=== PATIENT | female | born 1940 | race Caucasian/White ===

== ENCOUNTER 2019-04-01 08:45 | Inpatient (IN) | payer OTHER, BC ==
--- NOTE | 2019-04-01 08:55 | PDOC ---
History of Present Illness - General Chief Complaint: Back Pain Stated Complaint: BACK PAIN,FEVER,CHILLS Time Seen by Provider: 04/01/19 08:51 History Source: Patient Exam Limitations: No Limitations - History of Present Illness Initial Comments: 04/01/19 08:52 78 yo F with h/o chronic back pain, HTN, HLD arthritis, her with c/o fever and myalgia, chills. states she had fever 102 at home. took tylenol this am. pt states she recieved a steroid injection in her back on 03/20. and again on 03/26. here visiting from [place]. last night developed fever. has had a cough for few days, no n/v no abd pain. no urinary complaints. pain is at baseline in her back no worse. no new weakness or numbness in her legs. no rash. no recent travel. no n/v/d. meds: simvastatin, hctz, meloxicam, 04/01/19 09:35 04/01/19 10:48 Past History - Past Medical History Allergies/Adverse Reactions: Allergies Allergy/AdvReac Type Severity Reaction Status Date / Time No Known Allergies Allergy Verified 04/01/19 08:55 Home Medications: Ambulatory Orders Clonazepam 0 mg PO ASDIR 04/01/19 Simvastatin 0 mg PO DAILY 04/01/19 - Suicide/Smoking/Psychosocial Hx Smoking History: Never smoked Hx Alcohol Use: No Drug/Substance Use Hx: No Review of Systems - Review of Systems Constitutional: Yes: Chills, Fever HEENTM: No: Eye Pain Respiratory: Yes: Cough. No: Orthopnea, Shortness of Breath Cardiac (ROS): No: Chest Pain, Edema : No: Burning, Dysuria Musculoskeletal: Yes: Back Pain. No: Joint Pain Integumentary: No: Bruising, Change in Color All Other Systems: Reviewed and Negative *Physical Exam - Vital Signs Last Vital Signs Temp Pulse Resp BP Pulse Ox 99.5 F 80 20 109/56 L 96 04/01/19 08:46 04/01/19 08:46 04/01/19 08:46 04/01/19 08:46 04/01/19 08:46 - Physical Exam Comments: 04/01/19 08:54 awake alert NAD. dry mucous membranes. lungs crackles right lung lockett anteriorly. heart rrr no mrg abd soft nt nd ext wwp no edema. no calf tenderness. alert oriented x 3. skin warm and dry no rash. no midline spinal tenderness c/t/l spine. 5/5 lower ext strength. sensation intact throughout lower ext. 04/01/19 09:53 Heart Score/ECG Review #1 General ECG Interpretation: Sinus Rhythm, Normal Rate (78), Normal Intervals, No acute ischemic changes ED Treatment Course - LABORATORY CBC & Chemistry Diagram: 04/01/19 09:00 04/01/19 09:15 - RADIOLOGY Radiology Studies Ordered: Category Date Time Status CHEST PA & LAT [RAD] Stat Radiology 04/01/19 08:51 Ordered Medical Decision Making - Medical Decision Making 04/01/19 08:54 78 yo F h/o arthritis djd back pain recent injections 1 week ago here with cough fever. differential uti, pyelo, pna, sepsis, no midline tenderness over spine to suggest epidural abscess. plan labs ua cxr. if no source for fever consider mri r/o abscess. 04/01/19 08:56 pain management doctor [phone] Jamil. d/w dr jamil had medial nerves near facet joints, not near epidural space, but stil possible to seed in joint space. 04/01/19 13:[address] Joel Yu [phone] regaridng low sodium 128. MrI pending. called to request read. 04/01/19 14:12 pt with mild headache. possible symptomatic hyponatriema, given 1 L NS will repeat. due to persistant fevers, hypoxia 93 %. will admit. cxr negative. 04/01/19 14:31 mri findings wtih degenerative changes. no epidural fluid collection. however severe facet joint arthritis, difficult to differential inflammatory vs. infectious appearance per radiology . will cover vanco and zosy. pt with cough, sick contacts daughter and granddaughter with cough viral syndrome uri. however due to recent procedure, will cover for possible synovitis of spine. d/w Sachi for admission Franc dugan, will cosult infectious disease on admission. *DC/Admit/Observation/Transfer Diagnosis at time of Disposition: Hyponatremia, Cough - Discharge Dispostion Condition at time of disposition: Fair Decision to Admit order: Yes - Referrals - Patient Instructions - Post Discharge Activity
[2019-04-01] MEDS ORDERED: SODIUM CHLORIDE 0.9% 1000 ML INFUS.BAG IV ONE ×3 (08:57→18:15)
[2019-04-01 10:05] LABS: URINE MUCUS 1+
[2019-04-01 10:09] LABS: ALBUMIN 3.7 g/dl (3.4-5.0); BILIRUBIN,TOTAL 0.7 mg/dl (0.2-1); CALCIUM 8.4 mg/dl (8.5-10); CREATININE 0.9 mg/dl (0.55-1.3); POTASSIUM 3.4 mmol/L (3.5-5.1); TOT PROT 6.5 g/dl (6.4-8.2)
[2019-04-01 11:31] LABS: BASO % 0.2 % (0-2.0); EOS % 0.1 % (0-4.5); HEMATOCRIT 33.1 % (32.4-45.2); HEMOGLOBIN 11.1 GM/dL (10.7-15.3); LYMPH % 7.7 % (8-40); MCH 30.8 pg (25.7-33.7); MCHC 33.7 g/dl (32.0-36.0); MEAN CELL VOLUME 91.6 fl (80-96); MEAN PLT VOLUME 9.5 fl (7.5-11.1); MONO % 5.5 % (3.8-10.2); NEUT % 86.5 % (42.8-82.8); PLATELET COUNT 175 K/MM3 (134-434); RBC 3.61 M/mm3 (3.60-5.2); RDW 12.8 % (11.6-15.6); WHITE BLOOD COUNT 9.7 K/mm3 (4.0-10.0)
[2019-04-01 13:48] LABS: CALCIUM 8.1 mg/dl (8.5-10); CREATININE 0.9 mg/dl (0.55-1.3); POTASSIUM 3.3 mmol/L (3.5-5.1)
[2019-04-01] MEDS ORDERED: ACETAMINOPHEN INJECTION 100 ML IVPB ONE (13:50)
[2019-04-01] MEDS ORDERED: ACETAMINOPHEN 1000 MG/100 ML VIAL (NON FORMULARY) IVPB ONE (14:15)
[2019-04-01] MEDS ORDERED: PIPERACILLIN/TAZOB 3.375 GM 3.375 GM in DEXTROSE 5%-WATER - 50 ML IVPB ONE (14:30)
[2019-04-01] MEDS ORDERED: VANCOMYCIN 1 GM in D5W (PRE-DOCKED) 1,000 MG/250 ML IVPB ONE (14:31)
--- NOTE | 2019-04-01 14:46 | HP ---
CHIEF COMPLAINT: Fever, chills PCP: in [place] HISTORY OF PRESENT ILLNESS: 78 year-old female with a PMH significant for HTN, HLD, OA, and chronic back pain. Arrived in [place] on 03/27 from [place] to visit daughter. Presented to ED with complaint of home-recorded fever of 102.9, myalgias, and chills since last night. Patient reports having lumbar spine steroid injections for the first time on 03/20 and 03/26 with a pain management doctor in [place]. Patient has had a mild non-productive cough, visiting with young family members with assorted upper respiratory symptoms. No nausea, vomiting, diarrhea. No dysuria, frequency , urgency. 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 Smoking: quit 50 years ago Alcohol: rare Drugs: no Family History: non-contributory Allergies No Known Allergies Allergy (Verified 04/01/19 08:55) Home Medications Medication Instructions Recorded Benazepril/Hydrochlorothiazide 1 each PO BID 04/01/19 [Benazepril-Hctz 10-12.5 mg Tab] Clonazepam 1 mg PO HS 04/01/19 Lamotrigine 100 mg PO BID 04/01/19 Meloxicam [Mobic (Nf) -] 15 mg PO DAILY 04/01/19 Pramipexole Dihydrochloride 0.25 mg PO HS 04/01/19 Simvastatin 20 mg PO HS 04/01/19 traZODone HCL [Trazodone HCl] 50 mg PO HS 04/01/19 REVIEW OF SYSTEMS CONSTITUTIONAL: +fever, chills Absent: diaphoresis, generalized weakness, malaise, loss of appetite, weight change HEENT: Absent: rhinorrhea, nasal congestion, throat pain, throat swelling, difficulty swallowing, mouth swelling, ear pain, eye pain, visual changes CARDIOVASCULAR: Absent: chest pain, syncope, palpitations, irregular heart rate, lightheadedness , peripheral edema RESPIRATORY: Absent: cough, shortness of breath, dyspnea with exertion, orthopnea, wheezing, stridor, hemoptysis GASTROINTESTINAL: Absent: abdominal pain, abdominal distension, nausea, vomiting, diarrhea, constipation, melena, hematochezia GENITOURINARY: Absent: dysuria, frequency, urgency, hesitancy, hematuria, flank pain, genital pain MUSCULOSKELETAL: +back pain Absent: myalgia, arthralgia, joint swelling, neck pain SKIN: Absent: rash, itching, pallor HEMATOLOGIC/IMMUNOLOGIC: Absent: easy bleeding, easy bruising, lymphadenopathy, frequent infections ENDOCRINE: Absent: unexplained weight gain, unexplained weight loss, heat intolerance, cold intolerance NEUROLOGIC: Absent: headache, focal weakness or paresthesias, dizziness, unsteady gait, seizure, mental status changes, bladder or bowel incontinence PSYCHIATRIC: Absent: anxiety, depression, suicidal or homicidal ideation, hallucinations. PHYSICAL EXAMINATION Vital Signs - 24 hr 04/01/19 04/01/19 08:46 13:22 Temperature 99.5 F 102.9 F H Pulse Rate 80 Pulse Rate [ 78 Right Radial] Respiratory 20 Rate Blood Pressure 109/56 L Blood Pressure 95/68 [Left] O2 Sat by Pulse 96 95 Oximetry (%) GENERAL: Awake, alert, and fully oriented, in no acute distress. Well- appearing. Mildly anxious. LUNGS: Breath sounds equal, clear to auscultation bilaterally. No wheezes, and no crackles. No accessory muscle use. HEART: Regular rate and rhythm, normal S1 and S2 without murmur, rub or gallop. ABDOMEN: Soft, nontender, not distended, normoactive bowel sounds, no guarding, no rebound, no masses. MUSCULOSKELETAL: Normal range of motion at all joints. No bony deformities or tenderness. No CVA tenderness. UPPER EXTREMITIES: 2+ pulses, warm, well-perfused. No cyanosis. No clubbing. No peripheral edema. LOWER EXTREMITIES: 2+ pulses, warm, well-perfused. No calf tenderness. No peripheral edema. NEUROLOGICAL: Cranial nerves II-XII intact. Normal speech. Laboratory Results - last 24 hr 04/01/19 04/01/19 04/01/19 09:00 09:00 09:00 WBC 9.7 RBC 3.61 Hgb 11.1 Hct 33.1 MCV 91.6 MCH 30.8 MCHC 33.7 RDW 12.8 Plt Count 175 MPV 9.5 Absolute Neuts (auto) 8.4 H Neutrophils % 86.5 H Lymphocytes % 7.7 L Monocytes % 5.5 Eosinophils % 0.1 Basophils % 0.2 Nucleated RBC % 0 ESR Sodium Potassium Chloride Carbon Dioxide Anion Gap BUN Creatinine Est GFR (CKD-EPI)AfAm Est GFR (CKD-EPI)NonAf Random Glucose Lactic Acid 0.7 Calcium Total Bilirubin AST ALT Alkaline Phosphatase C-Reactive Protein Total Protein Albumin Urine Color Batool Urine Appearance Clear Urine pH 6.0 Urine Protein Trace Urine Glucose (UA) Negative Urine Ketones Trace Urine Blood 3+ H Urine Nitrite Negative Urine Bilirubin Negative Urine Urobilinogen 0.2 Ur Leukocyte Esterase Negative Urine RBC 5-10 Urine WBC 0-3 Urine Bacteria 1+ Hyaline Casts 5-10 Urine Mucus 1+ 04/01/19 04/01/19 04/01/19 09:15 09:42 09:42 WBC RBC Hgb Hct MCV MCH MCHC RDW Plt Count MPV Absolute Neuts (auto) Neutrophils % Lymphocytes % Monocytes % Eosinophils % Basophils % Nucleated RBC % ESR 46 H Sodium 128 L Potassium 3.4 L Chloride 93 L Carbon Dioxide 23 Anion Gap 12 BUN 18 Creatinine 0.9 Est GFR (CKD-EPI)AfAm 71.48 Est GFR (CKD-EPI)NonAf 61.67 Random Glucose 109 H Lactic Acid Calcium 8.4 L Total Bilirubin 0.7 AST 22 ALT 11 L Alkaline Phosphatase 65 C-Reactive Protein 7.8 H Total Protein 6.5 Albumin 3.7 Urine Color Urine Appearance Urine pH Urine Protein Urine Glucose (UA) Urine Ketones Urine Blood Urine Nitrite Urine Bilirubin Urine Urobilinogen Ur Leukocyte Esterase Urine RBC Urine WBC Urine Bacteria Hyaline Casts Urine Mucus ASSESSMENT/PLAN 78 year-old female with a PMH significant for HTN, HLD, OA, and chronic back pain. Admitted for suspected osteomyeltitis. Osteomyelitis --first time lumbar steroidal injections on 03/20 and 03/26; acute onset of symptoms of fever, chills last night --04/01 MRI LSS with contrast: active inflammatory facet synovitis L3-L4-L5 with soft tissue inflammation; L5-S1 soft tissue inflammation AND bone marrow enhancement --started on Vanc and Zosyn --fluid resuscitated 2.5L in ED --ID consulted Hyponatremia --Na 128, received 2.5L in ED --repeat bmp 9:00pm, --hold ACEI and HCTZ Hypertension --concern for pending sepsis, hold home ACEI and HCTZ Hyperlipidemia --continue statin Anxiety --continue Lorazepam FEN Fluids: NS@100mL/hr Electrolytes: replete as indicated Nutrition: low sodium DVT prophylaxis: subq lovenox Dispo: continues to require inpatient care. Full code.
[2019-04-01] MEDS ORDERED: VANCOMYCIN 1,000 MG VIAL (RESTRICTED TO ID ONLY) ONE (14:52)
[2019-04-01] MEDS ORDERED: PIPERACILLIN/TAZOBACTAM 3.375 GM VIAL IVPB ONE (14:53)
[2019-04-01] MEDS ORDERED: POTASSIUM CHLORIDE TABS 20 MEQ TABLET.ER (FP) PO ONE ×3 (17:29→23:30)
[2019-04-01 18:07] VITALS: BMI 28.7
[2019-04-01] MEDS ORDERED: ACETAMINOPHEN 325 MG TABLET (FP) PO PRN (18:22)
[2019-04-01] MEDS ORDERED: MAGNESIUM SULF 50% (8.12 MEQ/2 ML-1 GM VIAL) IVPB ONE (18:52)
[2019-04-01] MEDS ORDERED: clonazePAM 0.5 MG TABLET PO ONE (19:32)
[2019-04-01] MEDS ORDERED: VANCOMYCIN 1 GRAM (PRE-DOCKED) 1,000 MG/250 ML BAG IVPB SCH (20:15)
[2019-04-01] MEDS ORDERED: DEXAMETHASONE SOD PHOSPHATE 10 MG/1 ML VIAL IVPUSH ONE (23:07)
[2019-04-01] MEDS ORDERED: AMPICILLIN - 2 GM in SODIUM CHLORIDE 100 ML IVPB SCH (23:15)
[2019-04-01 23:19] LABS: CALCIUM 7.7 mg/dl (8.5-10); CREATININE 0.9 mg/dl (0.55-1.3); POTASSIUM 3.8 mmol/L (3.5-5.1)
[2019-04-01] MEDS ORDERED: SODIUM CHLORIDE 1,000 ML IV SCH (23:30)
[2019-04-02] MEDS: CEFTRIAXONE 2 GM-D5W BAG 2 GM/50 ML BAG IVPB SCH ×2 (00:13→12:19)
--- NOTE | 2019-04-02 00:31 | CONSULT ---
Consultation: REQUESTING PROVIDER: Hospitalists CONSULT Service: ICU Resident PCP: Dr. Marshall ([place], [place]) HISTORY OF PRESENT ILLNESS: 78yo F with h/o HTN, HLD, OA with chronic back pain who presents today with fever (max of 102.9 recorded at home), chills, and generalized weakness. Pt reports she was visiting her daughter here (flew from [place] 03/27/19) when she noticed her fever spiked yesterday to 102.9. After her fever developed she began to feel generalized weakness and had back pain similar to her usual pain, however more intense. Pt reports she received her first spinal steroid injections for her chronic back pain about 1.5-2wks prior 03/20 and 03/26 with a pain management physician she sees in [place]. In addition pt reports having a nonproductive cough that she attributes to being in contact with family members who have had an URI. Pt at this time denies any focal weakness, urinary or bowel incontinence, parasthesias of her legs, headaches, photophobia, dizziness/ lightheadedness, blurry vision, shortness of breath, CP/discomfort, palpitations , abdominal pain. 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 Smoking: quit 50 years ago Alcohol: Denies Drugs: Denies Family History: non-contributory REVIEW OF SYSTEMS: As per HPI PHYSICAL EXAMINATION Vital Signs 04/01/19 04/01/19 04/01/19 08:46 13:22 17:00 Temperature 99.5 F 102.9 F H 98.8 F Pulse Rate 80 Pulse Rate [ 78 66 Right Radial] Respiratory 20 Rate Blood Pressure 109/56 L Blood Pressure 95/68 90/56 L [Left] O2 Sat by Pulse 96 95 95 Oximetry (%) 04/01/19 04/01/19 04/01/19 18:02 18:31 21:00 Temperature 98.4 F Pulse Rate 77 74 Pulse Rate [ Right Radial] Respiratory 18 18 Rate Blood Pressure 89/56 L 99/49 L Blood Pressure [Left] O2 Sat by Pulse 100 99 Oximetry (%) 04/01/19 04/01/19 21:18 23:23 Temperature 101.4 F H 101.0 F H Pulse Rate 78 73 Pulse Rate [ Right Radial] Respiratory 18 19 Rate Blood Pressure 134/63 106/53 L Blood Pressure [Left] O2 Sat by Pulse Oximetry (%) GENERAL: NAD, awake, alert, and fully oriented HEENT: NC/AT, EOMI, KB, no photophobia noted, sclera anicteric, MMM NECK: Supple, no pain with flexion, no lymphadenopathy LUNGS: CTA bilaterally. No wheezes, and no crackles. No accessory muscle use. HEART: RRR, normal S1 and S2 without murmur ABDOMEN: Soft, NT/ND, normoactive bowel sounds, no guarding MSK: No skin changes overlying lumbar spine, no TTP with direct spinous process palpation, no CVA tenderness EXTREMITIES: 2+ DP pulses, warm, well-perfused. No calf tenderness. No peripheral edema. 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 Strength 5/5 in both upper and lower extremity lockett. Sensation intact throughout lower extremities. Normal speech. negative Kernig's sign. Gait not observed PSYCHIATRIC: Cooperative. Good eye contact. Appropriate mood and affect. SKIN: Warm, dry, no rashes or lesions noted. Laboratory Results 04/01/19 04/01/19 09:00 09:00 WBC 9.7 RBC 3.61 Hgb 11.1 Hct 33.1 MCV 91.6 MCH 30.8 MCHC 33.7 RDW 12.8 Plt Count 175 MPV 9.5 Absolute Neuts (auto) 8.4 H Neutrophils % 86.5 H Lymphocytes % 7.7 L Monocytes % 5.5 Eosinophils % 0.1 Basophils % 0.2 Nucleated RBC % 0 ESR Sodium Potassium Chloride Carbon Dioxide Anion Gap BUN Creatinine Est GFR (CKD-EPI)AfAm Est GFR (CKD-EPI)NonAf Random Glucose Lactic Acid 0.7 Calcium Magnesium Total Bilirubin AST ALT Alkaline Phosphatase C-Reactive Protein Total Protein Albumin Urine Color Batool Urine Appearance Clear Urine pH 6.0 Urine Protein Trace Urine Glucose (UA) Negative Urine Ketones Trace Urine Blood 3+ H Urine Nitrite Negative Urine Bilirubin Negative Urine Urobilinogen 0.2 Ur Leukocyte Esterase Negative Urine RBC 5-10 Urine WBC 0-3 Urine Bacteria 1+ Hyaline Casts 5-10 Urine Mucus 1+ 04/01/19 09:15 WBC RBC Hgb Hct MCV MCH MCHC RDW Plt Count MPV Absolute Neuts (auto) Neutrophils % Lymphocytes % Monocytes % Eosinophils % Basophils % Nucleated RBC % ESR 46 H Sodium 128 L Potassium 3.4 L Chloride 93 L Carbon Dioxide 23 Anion Gap 12 BUN 18 Creatinine 0.9 Est GFR (CKD-EPI)AfAm 71.48 Est GFR (CKD-EPI)NonAf 61.67 Random Glucose 109 H Lactic Acid Calcium 8.4 L Magnesium Total Bilirubin 0.7 AST 22 ALT 11 L Alkaline Phosphatase 65 C-Reactive Protein 7.8 H Total Protein 6.5 Albumin 3.7 Urine Color Urine Appearance Urine pH Urine Protein Urine Glucose (UA) Urine Ketones Urine Blood Urine Nitrite Urine Bilirubin Urine Urobilinogen Ur Leukocyte Esterase Urine RBC Urine WBC Urine Bacteria Hyaline Casts Urine Mucus 04/01/19 13:15 WBC RBC Hgb Hct MCV MCH MCHC RDW Plt Count MPV Absolute Neuts (auto) Neutrophils % Lymphocytes % Monocytes % Eosinophils % Basophils % Nucleated RBC % ESR Sodium 130 L Potassium 3.3 L Chloride 95 L Carbon Dioxide 24 Anion Gap 11 BUN 16 Creatinine 0.9 Est GFR (CKD-EPI)AfAm 71.48 Est GFR (CKD-EPI)NonAf 61.67 Random Glucose 99 Lactic Acid 1.9 Calcium 8.1 L Magnesium 1.7 Total Bilirubin AST ALT Alkaline Phosphatase C-Reactive Protein Total Protein Albumin Urine Color Urine Appearance Urine pH Urine Protein Urine Glucose (UA) Urine Ketones Urine Blood Urine Nitrite Urine Bilirubin Urine Urobilinogen Ur Leukocyte Esterase Urine RBC Urine WBC Urine Bacteria Hyaline Casts Urine Mucus 04/01/19 22:45 WBC RBC Hgb Hct MCV MCH MCHC RDW Plt Count MPV Absolute Neuts (auto) Neutrophils % Lymphocytes % Monocytes % Eosinophils % Basophils % Nucleated RBC % ESR Sodium 132 L Potassium 3.8 Chloride 101 Carbon Dioxide 22 Anion Gap 9 BUN 17 Creatinine 0.9 Est GFR (CKD-EPI)AfAm 71.48 Est GFR (CKD-EPI)NonAf 61.67 Random Glucose 166 H Lactic Acid Calcium 7.7 L Magnesium Total Bilirubin AST ALT Alkaline Phosphatase C-Reactive Protein Total Protein Albumin Urine Color Urine Appearance Urine pH Urine Protein Urine Glucose (UA) Urine Ketones Urine Blood Urine Nitrite Urine Bilirubin Urine Urobilinogen Ur Leukocyte Esterase Urine RBC Urine WBC Urine Bacteria Hyaline Casts Urine Mucus Active Medications Generic Name Dose Route Start Last Admin Trade Name Freq PRN Reason Stop Dose Admin Acetaminophen 650 mg 04/01/19 18:22 04/01/19 21:06 Tylenol - PO 650 mg Q6H PRN Administration PAIN LEVEL 1-5 Atorvastatin Calcium 10 mg 04/02/19 22:00 Lipitor - PO [facility] Chlorhexidine Gluconate 1 applic 04/02/19 22:00 Hibiclens For Decolonization - TP [facility] Clonazepam 1 mg 04/02/19 22:00 Klonopin - PO [facility] Enoxaparin Sodium 40 mg 04/02/19 10:00 Lovenox - SQ DAILY [facility] Piperacillin Sod/Tazobactam 100 mls @ 200 mls/hr 04/02/19 02:00 Sod 4.5 gm/ Dextrose IVPB Q8H-IV [facility] Protocol Vancomycin HCl 1,000 mg in 250 mls @ 166.667 mls/hr 04/02/19 04:00 Vancomycin (Pre-Docked) IVPB Q12H [facility] Protocol Piperacillin Sod/Tazobactam 100 mls @ 200 mls/hr 04/02/19 02:00 Sod 4.5 gm/ Dextrose IVPB 04/02/19 10:29 Q8H-IV [facility] Protocol Vancomycin HCl 1,000 mg in 250 mls @ 166.667 mls/hr 04/02/19 04:00 Vancomycin (Pre-Docked) IVPB 04/02/19 05:29 Q12H [facility] Protocol Ceftriaxone Sodium 2 gm in 50 mls @ 100 mls/hr 04/01/19 23:21 04/02/19 00:13 Ceftriaxone 2 Gm-D5w Bag IVPB 100 mls/hr DAILY [facility] Administration Protocol Sodium Chloride 1,000 mls @ 100 mls/hr 04/01/19 23:30 Normal Saline - IV ASDIR [facility] Lamotrigine 100 mg 04/02/19 10:00 Lamictal - PO BID [facility] Mupirocin 1 applic 04/02/19 10:00 Bactroban Ointment (For Decolonization) - NS 04/07/19 09:59 BID [facility] Pramipexole Dihydrochloride 0.25 mg 04/02/19 22:00 Mirapex - PO [facility] ASSESSMENT/PLAN: Osteomyelitis of LS Euvolemic hyponatremia HTN HLD Anxiety --Pt not exhibiting signs of meningitis nor concerning spinal abscess signs --Given LS MRI likely osteomyelitis and not meningitis --ID was consulted by primary team: Continue Rocephin, Vancomycin, Zosyn for now --Continue NS@75cc/hr --Monitor Hyponatremia; will likely increase with NS IVF --Hold HCTZ fo rnow given hyponatremia --Continue rest of home medications FEN: Fluids: NS@75cc/hr Electrolyte abnormalities: Hyponatremia as above Nutrition: Regular diet PPX: DVT - Lovenox SQ GI - not indicated Dispo: Can monitor overnight and likely transfer to / in [place] Sajan Gabriel, DO - IM PGY-2 Visit type - Emergency Visit Emergency Visit: Yes ED Registration Date: 04/02/19 Care time: The patient presented to the Emergency Department on the above date and was hospitalized for further evaluation of their emergent condition. - New Patient This patient is new to me today: Yes Date on this admission: 04/02/19 - Critical Care Critical Care patient: Yes Total Critical Care Time (in minutes): 35 Critical Care Statement: The care of this patient involved high complexity decision making to prevent further life threatening deterioration of the patient 's condition and/or to evaluate & treat vital organ system(s) failure or risk of failure.
[2019-04-02] MEDS ORDERED: DEXTROSE 5%-WATER 100 ML IVPB ONE ×3 (01:27→12:11)
[2019-04-02] MEDS ORDERED: PIPERACILLIN/TAZOBACTAM 4.5 GM VIAL IVPB ONE ×2 (01:27→09:13)
[2019-04-02] MEDS: PIPERACILLIN/TAZOB 4.5 GM 4.5 GM in DEXTROSE 5%-WATER 100 ML IVPB SCH ×2 (01:32→09:56)
[2019-04-02] MEDS ORDERED: SODIUM CHLORIDE 1,000 ML IV SCH (01:54)
[2019-04-02] MEDS ORDERED: PIPERACILLIN/TAZOB 4.5 GM 4.5 GM in DEXTROSE 5%-WATER 100 ML IVPB SCH ×2 (02:00→18:00)
[2019-04-02] MEDS ORDERED: VANCOMYCIN 1 GRAM (PRE-DOCKED) 1,000 MG/250 ML BAG IVPB SCH ×2 (04:00)
[2019-04-02 06:54] LABS: CREATININE 0.9 mg/dL (0.55-1.3)
[2019-04-02 06:55] LABS: ALBUMIN 2.9 g/dl (3.4-5.0); BILIRUBIN,TOTAL 0.3 mg/dL (0.2-1); MAGNESIUM 2.4 mg/dL (1.8-2.4); POTASSIUM 3.7 mmol/L (3.5-5.1); TOT PROT 5.9 g/dl (6.4-8.2)
--- NOTE | 2019-04-02 07:54 | PN ---
Progress Note, Physician Chief Complaint: lower back paiin, fever and chills x 2 days History of Present Illness: 78 year-old female with a PMH significant for HTN, HLD, OA, and chronic back pain. Arrived in [place] on 03/27 from [place] to visit daughter. Presented to ED with complaint of home-recorded fever of 102.9, myalgias, and chills since last night. Patient reports having lumbar spine steroid injections for the first time on 03/20 and 03/26 with a pain management doctor in [place]. Patient has had a mild non-productive cough, visiting with young family members with assorted upper respiratory symptoms. No nausea, vomiting, diarrhea. No dysuria, frequency , urgency. - Current Medication List Current Medications: Active Medications Acetaminophen (Tylenol -) 650 mg PO Q6H PRN PRN Reason: PAIN LEVEL 1-5 Last Admin: 04/01/19 21:06 Dose: 650 mg Atorvastatin Calcium (Lipitor -) 10 mg PO HS [facility] Chlorhexidine Gluconate (Hibiclens For Decolonization -) 1 applic TP HS [facility] Clonazepam (Klonopin -) 1 mg PO HS [facility] Enoxaparin Sodium (Lovenox -) 40 mg SQ DAILY [facility] Piperacillin Sod/Tazobactam (Sod 4.5 gm/ Dextrose) 100 mls @ 200 mls/hr IVPB Q8H-IV [facility]; Protocol Vancomycin HCl (Vancomycin (Pre-Docked)) 1,000 mg in 250 mls @ 166.667 mls/hr IVPB Q12H [facility]; Protocol Piperacillin Sod/Tazobactam (Sod 4.5 gm/ Dextrose) 100 mls @ 200 mls/hr IVPB Q8H-IV [facility]; Protocol Stop: 04/02/19 10:29 Last Admin: 04/02/19 01:32 Dose: 200 mls/hr Ceftriaxone Sodium (Ceftriaxone 2 Gm-D5w Bag) 2 gm in 50 mls @ 100 mls/hr IVPB DAILY [facility]; Protocol Last Admin: 04/02/19 00:13 Dose: 100 mls/hr Sodium Chloride (Normal Saline -) 1,000 mls @ 75 mls/hr IV ASDIR [facility] Stop: 04/02/19 12:49 Last Admin: 04/02/19 03:17 Dose: 75 mls/hr Lamotrigine (Lamictal -) 100 mg PO BID [facility] Mupirocin (Bactroban Ointment (For Decolonization) -) 1 applic NS BID [facility] Stop: 04/07/19 09:59 Pramipexole Dihydrochloride (Mirapex -) 0.25 mg PO [facility] - Objective Vital Signs: Vital Signs Temperature 97.8 F 04/02/19 06:00 Pulse Rate 60 04/02/19 06:00 Respiratory Rate 24 H 04/02/19 06:00 Blood Pressure 114/79 04/02/19 06:00 O2 Sat by Pulse Oximetry (%) 99 04/02/19 04:19 Constitutional: Yes: Well Nourished, No Distress, Calm Eyes: Yes: WNL, Conjunctiva Clear, EOM Intact HENT: Yes: WNL, Atraumatic, Normocephalic Neck: Yes: WNL, Supple, Trachea Midline Cardiovascular: Yes: WNL, Regular Rate and Rhythm Respiratory: Yes: WNL, Regular, CTA Bilaterally Gastrointestinal: Yes: WNL, Normal Bowel Sounds, Soft ...Rectal Exam: Yes: Deferred Genitourinary: Yes: WNL Breast(s): Yes: WNL Musculoskeletal: Yes: Back Pain (lumbar R>L) Extremities: Yes: WNL Edema: No Peripheral Pulses WNL: Yes Integumentary: Yes: WNL Neurological: Yes: WNL, Alert, Oriented ...Motor Strength: WNL Psychiatric: Yes: WNL, Alert, Oriented (MRI spine:Moderate rotatory levoscoliosis of lumbosacral spine. Multilevel central spinal canal stenosis, neural foramina narrowing, disc space narrowing, degenerative endplate bone marrow changes, spondylolisthesis. Active inflammatory facet arthropathy ( Facet synovitis). L3-L4. Enhancement of the right para facet soft tissues L4 -L5. Enhancement of the bilateral para facet soft tissues L5-S1. Enhancement of the left fozia facetal soft tissues, bone marrow enhancement. No definite abscess is seen within the limitation of examination.) Labs: CBC, BMP 04/02/19 05:46 - ....Imaging Chest X-ray: Image Reviewed MRI: Report Reviewed (IMPRESSION. Limited study due to the motion artifacts. Moderate rotatory levoscoliosis of lumbosacral spine. Multilevel central spinal canal stenosis, neural foramina narrowing, disc space narrowing, degenerative endplate bone marrow changes, spondylolisthesis. Active inflammatory facet arthropathy (Facet synovitis). L3-L4. Enhancement of the right para facet soft tissues L4-L5. Enhancement of the bilateral para facet soft tissues L5-S1. Enhancement of the left fozia facetal soft tissues, bone marrow enhancement. No definite abscess is seen within the limitation of examination.) Problem List - Problems (1) Anxiety Assessment/Plan: continue home dose of klonopin. emotional support provided spoke with aptient with daughter and present Code(s): F41.9 - ANXIETY DISORDER, UNSPECIFIED (2) Back pain Assessment/Plan: treating for presumed osteomyleotitis back with chronic LBP recently treated with steroid injection may apply ice for 20 min intervals to lower back Code(s): M54.9 - DORSALGIA, UNSPECIFIED (3) HTN (hypertension) Assessment/Plan: home dose of benzepril held, normotensive presently will reasse daily for re-introduction on antihypertensives Code(s): I10 - ESSENTIAL (PRIMARY) HYPERTENSION (4) Hyponatremia Assessment/Plan: resolved Na 137 daily CMP Code(s): E87.1 - HYPO-OSMOLALITY AND HYPONATREMIA (5) Osteomyelitis Assessment/Plan: on MRI patient found to have active inflammatory facet synovitis L3-L4-L5 w/ soft tissue inflammation; L5-S1 soft tissue inflammation and bone marrow enhancement -patient started on empiric Zosyn/Ceftriaxone/Vancomycin in ED. Cont citraixone pending cultures. -Dr. Genaro richardson Code(s): M86.9 - OSTEOMYELITIS, UNSPECIFIED Impression/Plan Impression/Plan: F/E/N NS @75mls/hr monitor electrolytes sodium controlled diet dvt PPX: lovenox sq Gi PPX: not needed dispo: can transfer to med-surg as per Critical Care Visit type - Emergency Visit Emergency Visit: Yes ED Registration Date: 04/02/19 Care time: The patient presented to the Emergency Department on the above date and was hospitalized for further evaluation of their emergent condition. - New Patient This patient is new to me today: Yes Date on this admission: 04/02/19 - Critical Care Critical Care patient: Yes Total Critical Care Time (in minutes): 30 Critical Care Statement: The care of this patient involved high complexity decision making to prevent further life threatening deterioration of the patient 's condition and/or to evaluate & treat vital organ system(s) failure or risk of failure.
[2019-04-02 07:59] LABS: BASO % 0.1 % (0-2.0); HEMATOCRIT 30.8 % (32.4-45.2); HEMOGLOBIN 10.4 GM/dL (10.7-15.3); LYMPH % 7.3 % (8-40); MCHC 33.6 g/dl (32.0-36.0); MEAN CELL VOLUME 92.1 fl (80-96); MONO % 2.1 % (3.8-10.2); NEUT % 90.5 % (42.8-82.8); PLATELET COUNT 147 K/MM3 (134-434); RBC 3.35 M/mm3 (3.60-5.2); RDW 13.4 % (11.6-15.6); WHITE BLOOD COUNT 7.2 K/mm3 (4.0-10.0)
[2019-04-02 09:11] LABS: INR 1.11 (0.83-1.09); PROTHROMBIN TIME (PATIENT) 13.1 SEC (9.7-13.0)
[2019-04-02 09:21] LABS: ACTIVATED PTT 33.6 SECONDS (25.2-36.5)
--- NOTE | 2019-04-02 09:28 | EKG ---
Test Reason : Blood Pressure : / mmHG Vent. Rate : 078 BPM Atrial Rate : 078 BPM P-R Int : 146 ms QRS Dur : 096 ms QT Int : 392 ms P-R-T Axes : 026 005 028 degrees QTc Int : 446 ms SINUS RHYTHM WITH PREMATURE ATRIAL COMPLEXES OTHERWISE NORMAL ECG NO PREVIOUS ECGS AVAILABLE Confirmed by WOJCIECH DIAL, LUPIS ([id number]) on 04/02/2019 9:28:22 AM Referred By: ATILIO GALINDO Confirmed By:LUPIS JEFFREY MD
[2019-04-02] MEDS ORDERED: lamoTRIgine 100 MG TABLET (FP) PO SCH (10:00)
[2019-04-02] MEDS ORDERED: MUPIROCIN 2% TOPICAL OINTMENT FOR DECOLONIZATION NS SCH ×2 (10:00→22:00)
[2019-04-02] MEDS ORDERED: ENOXAPARIN NA (PORCINE) 40 MG/0.4 ML DISP.SYRIN SQ SCH (10:00)
[2019-04-02] MEDS ORDERED: CEFTRIAXONE 2 GM in DEXTROSE 5%-WATER 100 ML IVPB SCH (11:39)
--- NOTE | 2019-04-02 11:44 | PN ---
Physical Exam: SUBJECTIVE: Patient seen and examined at bedside- no acute events overnight; patient states that she is feeling OK is having some slight pains in her back; she has been afebrile since being transferred from [facility]- she denies any CP/SOB/ N/V fevers or chills OBJECTIVE: Vital Signs Period Temp Pulse Resp BP Sys/[place] Pulse Ox Last 24 Hr 97.8 F-102.9 F 54-78 18-26 89-134/49-79 95-100 GENERAL: The patient is awake, alert, and fully oriented, in no acute distress. EYES: PEERLA: EOMI; no sceral icterus . NECK:no JVD; no lymphadenopathy LUNGS: CTA B/L; no rales, rhonchi or wheezing HEART: Regular rate and rhythm, S1, S2 without murmur, rub or gallop. ABDOMEN: Soft, nontender, nondistended, normoactive bowel sounds, no guarding, no rebound, no hepatosplenomegaly, no masses. EXTREMITIES: 2+ pulses, warm, well-perfused, no edema. MUSCULOSKELETAL: no midline spinal tenderness; slight lateral tenderness PSYCH: Normal mood, normal affect. SKIN: Warm, dry, normal turgor, no rashes or lesions noted Laboratory Results - last 24 hr 04/01/19 04/01/19 04/01/19 09:42 13:15 18:20 WBC RBC Hgb Hct MCV MCH MCHC RDW Plt Count MPV Absolute Neuts (auto) Neutrophils % Lymphocytes % Monocytes % Eosinophils % Basophils % Nucleated RBC % PT with INR INR PTT (Actin FS) Sodium 130 L Potassium 3.3 L Chloride 95 L Carbon Dioxide 24 Anion Gap 11 BUN 16 Creatinine 0.9 Est GFR (CKD-EPI)AfAm 71.48 Est GFR (CKD-EPI)NonAf 61.67 Random Glucose 99 Lactic Acid Calcium 8.1 L Magnesium 1.7 L Total Bilirubin AST ALT Alkaline Phosphatase C-Reactive Protein 7.8 H Total Protein Albumin 04/01/19 04/01/19 04/02/19 21:00 22:45 05:46 WBC 7.2 RBC 3.35 L Hgb 10.4 L Hct 30.8 L MCV 92.1 MCH 31.0 MCHC 33.6 RDW 13.4 Plt Count 147 MPV 9.0 Absolute Neuts (auto) 6.5 Neutrophils % 90.5 H Lymphocytes % 7.3 L Monocytes % 2.1 L Eosinophils % 0.0 D Basophils % 0.1 Nucleated RBC % 0 PT with INR INR PTT (Actin FS) Sodium 132 L Potassium 3.8 Chloride 101 Carbon Dioxide 22 Anion Gap 9 BUN 17 Creatinine 0.9 Est GFR (CKD-EPI)AfAm 71.48 Est GFR (CKD-EPI)NonAf 61.67 Random Glucose 166 H Lactic Acid 1.9 Calcium 7.7 L Magnesium Total Bilirubin AST ALT Alkaline Phosphatase C-Reactive Protein Total Protein Albumin 04/02/19 04/02/19 04/02/19 05:46 05:46 06:00 WBC RBC Hgb Hct MCV MCH MCHC RDW Plt Count MPV Absolute Neuts (auto) Neutrophils % Lymphocytes % Monocytes % Eosinophils % Basophils % Nucleated RBC % PT with INR Cancelled 13.10 H INR Cancelled 1.11 H PTT (Actin FS) 33.6 Sodium 137 Potassium 3.7 Chloride 104 Carbon Dioxide 25 Anion Gap 8 BUN 13 Creatinine 0.9 Est GFR (CKD-EPI)AfAm 71.48 Est GFR (CKD-EPI)NonAf 61.67 Random Glucose 220 H Lactic Acid Calcium 8.0 L Magnesium 2.4 Total Bilirubin 0.3 AST 47 H ALT 27 Alkaline Phosphatase 85 C-Reactive Protein Total Protein 5.9 L Albumin 2.9 L Active Medications Generic Name Dose Route Start Last Admin Trade Name Freq PRN Reason Stop Dose Admin Acetaminophen 650 mg 04/01/19 18:22 04/01/19 21:06 Tylenol - PO 650 mg Q6H PRN Administration PAIN LEVEL 1-5 Atorvastatin Calcium 10 mg 04/02/19 22:00 Lipitor - PO HS [facility] Chlorhexidine Gluconate 1 applic 04/02/19 22:00 Hibiclens For Decolonization - TP HS [facility] Clonazepam 1 mg 04/02/19 22:00 Klonopin - PO HS [facility] Enoxaparin Sodium 40 mg 04/02/19 10:00 04/02/19 09:55 Lovenox - SQ 40 mg DAILY [facility] Administration Piperacillin Sod/Tazobactam 100 mls @ 200 mls/hr 04/02/19 02:00 Sod 4.5 gm/ Dextrose IVPB Q8H-IV [facility] Protocol Vancomycin HCl 1,000 mg in 250 mls @ 166.667 mls/hr 04/02/19 04:00 Vancomycin (Pre-Docked) IVPB Q12H [facility] Protocol Sodium Chloride 1,000 mls @ 75 mls/hr 04/02/19 01:54 04/02/19 03:17 Normal Saline - IV 04/02/19 12:49 75 mls/hr ASDIR [facility] Administration Ceftriaxone Sodium 2 gm/ 100 mls @ 200 mls/hr 04/02/19 11:39 Dextrose IVPB DAILY [facility] Protocol Lamotrigine 100 mg 04/02/19 10:00 Lamictal - PO BID [facility] Mupirocin 1 applic 04/02/19 10:00 04/02/19 09:55 Bactroban Ointment (For Decolonization) - NS 04/07/19 09:59 1 applic BID [facility] Administration Pramipexole Dihydrochloride 0.25 mg 04/02/19 22:00 Mirapex - PO HS [facility] ASSESSMENT/PLAN: 78 y/o female with PMH of HTN, HLD, OA, chronic back pain who presented to the ED with worsening fevers/myalgias and back pain after receiving 2 rounds of steroid injections last week, found to have possible osteomyelitis on MRI #Cardio HTN/HLD -controlled -c/w home medications #Endocrine patient was hyponatremic upon arrival at 128 yesterday -resolved - Ns @75mls/hr -monitor electrolytes #Infectious Disease on MRI patient found to have active inflammatory facet synovitis L3-L4-L5 w/ soft tissue inflammation; L5-S1 soft tissue inflammation and bone marrow enhancement -patient started on empiric Zosyn/Ceftriaxone/Vancomycin- will continue with vancomycin as per Dr Lam -Dr. Lam consulted -will speak to radiology if definitely osteomyelitis #Psych anxiety/depression -controlled -c/w home medications F/E/N NS @75mls/hr monitor electrolytes sodium controlled diet dvt PPX: lovenox sq Gi PPX: not needed dispo: can transfer to med-surg Problem List - Problems (1) HTN (hypertension) Code(s): I10 - ESSENTIAL (PRIMARY) HYPERTENSION (2) Back pain Code(s): M54.9 - DORSALGIA, UNSPECIFIED (3) Osteomyelitis Code(s): M86.9 - OSTEOMYELITIS, UNSPECIFIED Visit type - Emergency Visit Emergency Visit: Yes ED Registration Date: 04/02/19 Care time: The patient presented to the Emergency Department on the above date and was hospitalized for further evaluation of their emergent condition. - New Patient This patient is new to me today: Yes Date on this admission: 04/02/19 - Critical Care Critical Care patient: Yes Total Critical Care Time (in minutes): 35 Critical Care Statement: The care of this patient involved high complexity decision making to prevent further life threatening deterioration of the patient 's condition and/or to evaluate & treat vital organ system(s) failure or risk of failure.
--- NOTE | 2019-04-02 11:53 | PN ---
Teaching Attending Note Name of Resident: Chelsea Blakely ATTENDING PHYSICIAN STATEMENT I saw and evaluated the patient. I reviewed the resident's note and discussed the case with the resident. I agree with the resident's findings and plan as documented. SUBJECTIVE: Pt seen and examined in the ICU. Fever curve trending down. Does report some left sided back pain. No neck pain or photophobia. OBJECTIVE: Vital Signs Period Temp Pulse Resp BP Sys/[place] Pulse Ox Last 24 Hr 97.8 F-102.9 F 54-78 18-26 89-134/49-79 95-100 Intake & Output 03/30/19 03/31/19 04/01/19 04/02/19 23:59 23:59 23:59 23:59 Intake Total 1450 700 Output Total 350 Balance 1100 700 Weight 66.678 kg Gen: NAD at rest Neck: no rigidity, nontender Heart: RRR Lung: decreased breath sounds at the bases Abd: soft, nontender Ext: no edema CBC, BMP 04/02/19 05:46 04/02/19 05:46 Active Medications Acetaminophen (Tylenol -) 650 mg PO Q6H PRN PRN Reason: PAIN LEVEL 1-5 Last Admin: 04/01/19 21:06 Dose: 650 mg Atorvastatin Calcium (Lipitor -) 10 mg PO HS [facility] Chlorhexidine Gluconate (Hibiclens For Decolonization -) 1 applic TP HS [facility] Clonazepam (Klonopin -) 1 mg PO HS [facility] Enoxaparin Sodium (Lovenox -) 40 mg SQ DAILY [facility] Last Admin: 04/02/19 09:55 Dose: 40 mg Piperacillin Sod/Tazobactam (Sod 4.5 gm/ Dextrose) 100 mls @ 200 mls/hr IVPB Q8H-IV [facility]; Protocol Vancomycin HCl (Vancomycin (Pre-Docked)) 1,000 mg in 250 mls @ 166.667 mls/hr IVPB Q12H [facility]; Protocol Sodium Chloride (Normal Saline -) 1,000 mls @ 75 mls/hr IV ASDIR [facility] Stop: 04/02/19 12:49 Last Admin: 04/02/19 03:17 Dose: 75 mls/hr Ceftriaxone Sodium 2 gm/ (Dextrose) 100 mls @ 200 mls/hr IVPB DAILY [facility]; Protocol Lamotrigine (Lamictal -) 100 mg PO BID [facility] Mupirocin (Bactroban Ointment (For Decolonization) -) 1 applic NS BID [facility] Stop: 04/07/19 09:59 Last Admin: 04/02/19 09:55 Dose: 1 applic Pramipexole Dihydrochloride (Mirapex -) 0.25 mg PO HS [facility] ASSESSMENT AND PLAN: r/o Osteomyelitis Sepsis Hyponatremia HTN Hyperlipidemia Anxiety - antibiotics per ID - f/u cultures - IVF - monitor urine output, creatinine - PO as tolerated - DVT prophylaxis - can monitor on floor
[2019-04-02] MEDS ORDERED: PT OWN MED DRAWER 7, Y5N ONE (12:26)
--- NOTE | 2019-04-02 12:52 | CON.ID ---
Consult - Past Medical History ...: No - Alcohol/Substance Use Hx Alcohol Use: No - Smoking History Smoking history: Never smoked Home Medications - Allergies Allergies/Adverse Reactions: Allergies Allergy/AdvReac Type Severity Reaction Status Date / Time No Known Allergies Allergy Verified 04/01/19 08:55 - Home Medications Home Medications: Ambulatory Orders Benazepril/Hydrochlorothiazide [Benazepril-Hctz 10-12.5 mg Tab] 1 each PO BID Clonazepam 1 mg PO HS 04/01/19 Lamotrigine 100 mg PO BID 04/01/19 Meloxicam [Mobic (Nf) -] 15 mg PO DAILY 04/01/19 Pramipexole Dihydrochloride 0.25 mg PO HS 04/01/19 Simvastatin 20 mg PO HS 04/01/19 traZODone HCL [Trazodone HCl] 50 mg PO HS 04/01/19 Physical Exam Vital Signs: Vital Signs Temperature 97.8 F 04/02/19 10:00 Pulse Rate 63 04/02/19 12:00 Respiratory Rate 25 H 04/02/19 12:00 Blood Pressure 119/71 04/02/19 12:00 O2 Sat by Pulse Oximetry (%) 99 04/02/19 07:44 Labs: CBC, BMP 04/02/19 05:46 04/02/19 05:46
[2019-04-02] MEDS ORDERED: VANCOMYCIN HCL 1,250 MG in DEXTROSE 5%-WATER - 250 ML IVPB ONE (17:00)
[2019-04-02] MEDS: PRAMIPEXOLE DIHYDROCHLORIDE 0.25 MG TABLET PO SCH (21:52)
[2019-04-02] MEDS: clonazePAM 0.5 MG TABLET PO SCH (21:52)
[2019-04-02] MEDS: ATORVASTATIN CA 10 MG TABLET (FP) PO SCH (21:52)
[2019-04-02] MEDS: lamoTRIgine 100 MG TABLET (FP) PO SCH (21:53)
[2019-04-02] MEDS ORDERED: CHLORHEXIDINE GLUCONATE 4% CLEANSER FOR DECOLONIZATION TP SCH ×2 (22:00)
[2019-04-02] MEDS ORDERED: ATORVASTATIN CA 10 MG TABLET (FP) PO SCH (22:00)
[2019-04-02] MEDS ORDERED: clonazePAM 0.5 MG TABLET PO SCH (22:00)
[2019-04-02] MEDS ORDERED: PRAMIPEXOLE DIHYDROCHLORIDE 0.25 MG TABLET PO SCH (22:00)
[2019-04-03] MEDS: ACETAMINOPHEN 325 MG TABLET (FP) PO PRN ×3 (03:28→17:53)
[2019-04-03] MEDS ORDERED: VANCOMYCIN 1 GRAM (PRE-DOCKED) 1,000 MG/250 ML BAG IVPB SCH (04:00)
[2019-04-03] MEDS ORDERED: CEFTRIAXONE 1 GM in DEXTROSE 5%-WATER - 50 ML IVPB ONE ×2 (07:30→08:15)
[2019-04-03] MEDS ORDERED: VANCOMYCIN 1 GM in D5W (PRE-DOCKED) 1,000 MG/250 ML IVPB ONE (07:36)
[2019-04-03 07:56] LABS: HEMATOCRIT 31.2 % (32.4-45.2); HEMOGLOBIN 10.4 GM/dL (10.7-15.3); MCH 30.4 pg (25.7-33.7); MCHC 33.4 g/dl (32.0-36.0); MEAN CELL VOLUME 91.2 fl (80-96); PLATELET COUNT 177 K/MM3 (134-434); RBC 3.42 M/mm3 (3.60-5.2); RDW 13.2 % (11.6-15.6); WHITE BLOOD COUNT 9.3 K/mm3 (4.0-10.0)
[2019-04-03 08:10] LABS: CALCIUM 8.4 mg/dL (8.5-10.1); CREATININE 0.8 mg/dL (0.55-1.3); MAGNESIUM 2.2 mg/dL (1.8-2.4); PHOSPHOROUS 2.3 mg/dL (2.5-4.9); POTASSIUM 3.5 mmol/L (3.5-5.1)
[2019-04-03] MEDS ORDERED: VANCOMYCIN 1 GRAM (PRE-DOCKED) 1,000 MG/250 ML BAG IVPB ONE (08:15)
--- NOTE | 2019-04-03 08:22 | PN ---
Progress Note, Physician Chief Complaint: lower back paiin, fever and chills x 2 days History of Present Illness: 78 year-old female with a PMH significant for HTN, HLD, OA, and chronic back pain. Arrived in [place] on 03/27 from [place] to visit daughter. Presented to ED with complaint of home-recorded fever of 102.9, myalgias, and chills since last night. Patient reports having lumbar spine steroid injections for the first time on 03/20 and 03/26 with a pain management doctor in [place]. Patient has had a mild non-productive cough, visiting with young family members with assorted upper respiratory symptoms. No nausea, vomiting, diarrhea. No dysuria, frequency , urgency. - Current Medication List Current Medications: Active Medications Acetaminophen (Tylenol -) 650 mg PO Q6H PRN PRN Reason: PAIN LEVEL 1-5 Last Admin: 04/03/19 03:28 Dose: 650 mg Atorvastatin Calcium (Lipitor -) 10 mg PO [facility] Last Admin: 04/02/19 21:52 Dose: 10 mg Chlorhexidine Gluconate (Hibiclens For Decolonization -) 1 applic TP HS [facility] Clonazepam (Klonopin -) 1 mg PO [facility] Last Admin: 04/02/19 21:52 Dose: 1 mg Enoxaparin Sodium (Lovenox -) 40 mg SQ DAILY [facility] Vancomycin HCl (Vancomycin (Pre-Docked)) 1,000 mg in 250 mls @ 250 mls/hr IVPB ONCE ONE Stop: 04/03/19 09:14 Ceftriaxone Sodium 1 gm/ (Dextrose) 50 mls @ 100 mls/hr IVPB ONCE ONE Stop: 04/03/19 08:44 Lamotrigine (Lamictal -) 100 mg PO BID [facility] Last Admin: 04/02/19 21:53 Dose: 100 mg Mupirocin (Bactroban Ointment (For Decolonization) -) 1 applic NS BID [facility] Stop: 04/07/19 09:59 Pramipexole Dihydrochloride (Mirapex -) 0.25 mg PO [facility] Last Admin: 04/02/19 21:52 Dose: 0.25 mg - Objective Vital Signs: Vital Signs Temperature 98.4 F 04/03/19 06:00 Pulse Rate 90 04/03/19 06:00 Respiratory Rate 20 04/03/19 06:00 Blood Pressure 131/71 04/03/19 06:00 O2 Sat by Pulse Oximetry (%) 99 04/02/19 21:00 Constitutional: Yes: Well Nourished, No Distress, Anxious Eyes: Yes: WNL, Conjunctiva Clear, EOM Intact HENT: Yes: WNL, Atraumatic, Normocephalic Neck: Yes: WNL, Supple, Trachea Midline Cardiovascular: Yes: WNL, Regular Rate and Rhythm Respiratory: Yes: WNL, Regular, CTA Bilaterally Gastrointestinal: Yes: WNL, Normal Bowel Sounds ...Rectal Exam: Yes: Deferred Genitourinary: Yes: WNL Musculoskeletal: Yes: Back Pain (less today) Extremities: Yes: WNL Edema: No Peripheral Pulses WNL: Yes Integumentary: Yes: WNL Neurological: Yes: WNL, Alert, Oriented ...Motor Strength: WNL Psychiatric: Yes: WNL, Alert, Oriented Labs: CBC, BMP 04/03/19 07:00 04/03/19 07:00 INR, PTT INR 1.11 (0.83-1.09) H 04/02/19 06:00 - ....Imaging Chest X-ray: Report Reviewed, Image Reviewed MRI: Report Reviewed EKG: Report Reviewed, Image Reviewed Problem List - Problems (1) Anxiety Assessment/Plan: continue home dose of klonopin. emotional support provided spoke with aptient with daughter and present Code(s): F41.9 - ANXIETY DISORDER, UNSPECIFIED (2) Back pain Assessment/Plan: treating for osteomyleotitis vs synovitis back with chronic LBP recently treated with steroid injection may apply ice for 20 min intervals to lower back Code(s): M54.9 - DORSALGIA, UNSPECIFIED (3) HTN (hypertension) Assessment/Plan: home dose of benzepril held, normotensive presently will reasses daily for re-introduction on antihypertensives Code(s): I10 - ESSENTIAL (PRIMARY) HYPERTENSION (4) Hyponatremia Assessment/Plan: resolved Na 138 daily CMP Code(s): E87.1 - HYPO-OSMOLALITY AND HYPONATREMIA (5) Osteomyelitis Assessment/Plan: on MRI patient found to have active inflammatory facet synovitis L3-L4-L5 w/ soft tissue inflammation; L5-S1 soft tissue inflammation and bone marrow enhancement -patient started on empiric Zosyn/Ceftriaxone/Vancomycin in ED. Cont ceftriaxone pending cultures. -Dr. Lam following and spoke to patient/family -procalcitonin sent -viral swabs and cdif sent to r/o other sources of infection - Code(s): M86.9 - OSTEOMYELITIS, UNSPECIFIED Impression/Plan Impression/Plan: F/E/N dc IVF monitor electrolytes sodium controlled diet dvt PPX: lovenox sq Gi PPX: not needed dispo: maintain as inpatient discharge planning-EILEEN/COURTNEY spoke to home infusion agency if IV abx are needed as outpatient full code Visit type - Emergency Visit Emergency Visit: Yes ED Registration Date: 04/02/19 Care time: The patient presented to the Emergency Department on the above date and was hospitalized for further evaluation of their emergent condition. - New Patient This patient is new to me today: No - Critical Care Critical Care patient: No - Discharge Referral Referred to [facility] Med P.C[facility] No
[2019-04-03] MEDS ORDERED: DEXTROSE 5%-WATER - 50 ML IVPB ONE (08:46)
[2019-04-03] MEDS ORDERED: cefTRIAXone SODIUM 1 GM VIAL ONE (08:46)
[2019-04-03] MEDS ORDERED: POTASSIUM CHLORIDE TABS 20 MEQ TABLET.ER (FP) PO ONE (09:30)
[2019-04-03] MEDS: lamoTRIgine 100 MG TABLET (FP) PO SCH ×2 (13:21→21:39)
[2019-04-03] MEDS: ENOXAPARIN NA (PORCINE) 40 MG/0.4 ML DISP.SYRIN SQ SCH (13:22)
--- NOTE | 2019-04-03 13:45 | PN ---
Progress Note, Physician History of Present Illness: patient feels much better no complaints patient was tachypnoeic this morning o2 sat was 91 temp was 99.1 currently on nasal canula - Current Medication List Current Medications: Active Medications Acetaminophen (Tylenol -) 650 mg PO Q6H PRN PRN Reason: PAIN LEVEL 1-5 Last Admin: 04/03/19 09:33 Dose: 650 mg Atorvastatin Calcium (Lipitor -) 10 mg PO [facility] Last Admin: 04/02/19 21:52 Dose: 10 mg Clonazepam (Klonopin -) 1 mg PO HS [facility] Last Admin: 04/02/19 21:52 Dose: 1 mg Enoxaparin Sodium (Lovenox -) 40 mg SQ DAILY [facility] Last Admin: 04/03/19 13:22 Dose: 40 mg Lamotrigine (Lamictal -) 100 mg PO BID [facility] Last Admin: 04/03/19 13:21 Dose: 100 mg Pramipexole Dihydrochloride (Mirapex -) 0.25 mg PO [facility] Last Admin: 04/02/19 21:52 Dose: 0.25 mg Pseudoephedrine HCl (Sudafed -) 30 mg PO Q6H PRN PRN Reason: NASAL CONGESTION Sodium Chloride ([place] -) 2 spray NS TID PRN PRN Reason: NASAL CONGESTION - Objective Vital Signs: Vital Signs Temperature 98.1 F 04/03/19 11:30 Pulse Rate 79 04/03/19 11:30 Respiratory Rate 24 H 04/03/19 11:30 Blood Pressure 111/67 04/03/19 11:30 O2 Sat by Pulse Oximetry (%) 99 04/02/19 21:00 Constitutional: Yes: No Distress, Calm Cardiovascular: Yes: Regular Rate and Rhythm Respiratory: Yes: Regular, On Nasal O2, Poor Air Entry (bases) Gastrointestinal: Yes: Normal Bowel Sounds, Soft Musculoskeletal: Yes: WNL Extremities: Yes: WNL Neurological: Yes: Alert, Oriented Psychiatric: Yes: Alert, Oriented Labs: CBC, BMP 04/03/19 07:00 04/03/19 07:00 INR, PTT INR 1.11 (0.83-1.09) H 04/02/19 06:00 Assessment/Plan r/o Osteomyelitis Sepsis Hyponatremia HTN Hyperlipidemia Anxiety -i have discussed with the family in great detail about all the scenarios i have also discussed with radiology about the findings of her spine will ordered repeat crp and esr will continue abx procalcitonin has been send await for that test result family understands what i have said
[2019-04-03] MEDS ORDERED: clonazePAM 0.5 MG TABLET PO ONE (17:00)
[2019-04-03] MEDS ORDERED: PT OWN MED DRAWER 7, Y5N ONE (17:15)
[2019-04-03] MEDS: PSEUDOEPHEDRINE HCL 30 MG TABLET PO PRN (17:55)
[2019-04-03] MEDS: SODIUM CHLORIDE NASAL SPRAY 44 ML BOTTLE NS PRN (17:56)
[2019-04-03] MEDS: clonazePAM 0.5 MG TABLET PO SCH (21:39)
[2019-04-03] MEDS: ATORVASTATIN CA 10 MG TABLET (FP) PO SCH (21:39)
[2019-04-03] MEDS: PRAMIPEXOLE DIHYDROCHLORIDE 0.25 MG TABLET PO SCH (21:39)
[2019-04-04] MEDS: ACETAMINOPHEN 325 MG TABLET (FP) PO PRN (01:51)
[2019-04-04 07:58] LABS: BASO % 0.3 % (0-2.0); EOS % 0.2 % (0-4.5); HEMATOCRIT 28.7 % (32.4-45.2); HEMOGLOBIN 9.7 GM/dL (10.7-15.3); LYMPH % 16.6 % (8-40); MCH 30.9 pg (25.7-33.7); MCHC 33.9 g/dl (32.0-36.0); MEAN CELL VOLUME 91.2 fl (80-96); MEAN PLT VOLUME 9.2 fl (7.5-11.1); MONO % 9.4 % (3.8-10.2); NEUT % 73.5 % (42.8-82.8); PLATELET COUNT 172 K/MM3 (134-434); RBC 3.15 M/mm3 (3.60-5.2); RDW 13.2 % (11.6-15.6); WHITE BLOOD COUNT 5.2 K/mm3 (4.0-10.0)
--- NOTE | 2019-04-04 08:27 | PN ---
Progress Note, Physician Chief Complaint: lower back paiin, fever and chills x 2 days History of Present Illness: 78 year-old female with a PMH significant for HTN, HLD, OA, and chronic back pain. Arrived in [place] on 03/27 from [place] to visit daughter. Presented to ED with complaint of home-recorded fever of 102.9, myalgias, and chills since last night. Patient reports having lumbar spine steroid injections for the first time on 03/20 and 03/26 with a pain management doctor in [place]. Patient has had a mild non-productive cough, visiting with young family members with assorted upper respiratory symptoms. No nausea, vomiting, diarrhea. No dysuria, frequency , urgency. - Current Medication List Current Medications: Active Medications Acetaminophen (Tylenol -) 650 mg PO Q6H PRN PRN Reason: PAIN LEVEL 1-5 Last Admin: 04/04/19 01:51 Dose: 650 mg Atorvastatin Calcium (Lipitor -) 10 mg PO [facility] Last Admin: 04/03/19 21:39 Dose: 10 mg Clonazepam (Klonopin -) 1 mg PO [facility] Last Admin: 04/03/19 21:39 Dose: 1 mg Enoxaparin Sodium (Lovenox -) 40 mg SQ DAILY [facility] Last Admin: 04/03/19 13:22 Dose: 40 mg Lamotrigine (Lamictal -) 100 mg PO BID [facility] Last Admin: 04/03/19 21:39 Dose: 100 mg Pramipexole Dihydrochloride (Mirapex -) 0.25 mg PO [facility] Last Admin: 04/03/19 21:39 Dose: 0.25 mg Pseudoephedrine HCl (Sudafed -) 30 mg PO Q6H PRN PRN Reason: NASAL CONGESTION Last Admin: 04/03/19 17:55 Dose: 30 mg Sodium Chloride ([place] Nasal [place] -) 2 spray NS TID PRN PRN Reason: NASAL CONGESTION Last Admin: 04/03/19 17:56 Dose: 2 spray - Objective Vital Signs: Vital Signs Temperature 98.8 F 04/04/19 06:00 Pulse Rate 77 04/04/19 06:00 Respiratory Rate 22 H 04/04/19 06:00 Blood Pressure 98/54 L 04/04/19 06:00 O2 Sat by Pulse Oximetry (%) 94 L 04/03/19 21:00 Constitutional: Yes: Well Nourished, No Distress, Anxious (crying during encounter) Eyes: Yes: WNL, Conjunctiva Clear, EOM Intact HENT: Yes: WNL, Atraumatic, Normocephalic Neck: Yes: WNL, Supple, Trachea Midline Cardiovascular: Yes: WNL, Regular Rate and Rhythm Respiratory: Yes: WNL, Regular, CTA Bilaterally Gastrointestinal: Yes: WNL, Normal Bowel Sounds, Soft ...Rectal Exam: Yes: Deferred Genitourinary: Yes: WNL Extremities: Yes: WNL Edema: No Peripheral Pulses WNL: Yes Neurological: Yes: WNL, Alert, Oriented ...Motor Strength: WNL Psychiatric: Yes: WNL, Alert, Oriented Labs: INR, PTT INR 1.11 (0.83-1.09) H 04/02/19 06:00 - ....Imaging Chest X-ray: Report Reviewed, Image Reviewed EKG: Report Reviewed, Image Reviewed Problem List - Problems (1) Anxiety Assessment/Plan: increased home dose of klonopin to q8 H prn emotional support provided spoke with patient with daughter and present Code(s): F41.9 - ANXIETY DISORDER, UNSPECIFIED (2) Back pain Assessment/Plan: treating for osteomyleotitis vs synovitis back with chronic LBP recently treated with steroid injection may apply ice for 20 min intervals to lower back Code(s): M54.9 - DORSALGIA, UNSPECIFIED (3) HTN (hypertension) Assessment/Plan: home dose of benzepril held, normotensive presently will reasses daily for re-introduction on antihypertensives Code(s): I10 - ESSENTIAL (PRIMARY) HYPERTENSION (4) Hyponatremia Assessment/Plan: resolved Na 138 daily CMP Code(s): E87.1 - HYPO-OSMOLALITY AND HYPONATREMIA (5) Osteomyelitis Assessment/Plan: on MRI patient found to have active inflammatory facet synovitis L3-L4-L5 w/ soft tissue inflammation; L5-S1 soft tissue inflammation and bone marrow enhancement -patient started on empiric Zosyn/Ceftriaxone/Vancomycin in ED. Vanco by level and ceftriaxone pending cultures. -Dr. Lam following and spoke to patient/family. Plan for course of 6week therapy -plan for PICC today -home infusion therapy requested by SW/CN-appreciate help -procalcitonin sent -ESR 63, ESR 14.4 -viral swabs and cdif sent to r/o other sources of infection - Code(s): M86.9 - OSTEOMYELITIS, UNSPECIFIED Impression/Plan Impression/Plan: F/E/N dc IVF monitor electrolytes sodium controlled diet dvt PPX: lovenox sq Gi PPX: not needed dispo: maintain as inpatient discharge planning-SW/CM spoke to home infusion agency if IV abx are needed as outpatient full code Visit type - Emergency Visit Emergency Visit: Yes ED Registration Date: 04/02/19 Care time: The patient presented to the Emergency Department on the above date and was hospitalized for further evaluation of their emergent condition. - New Patient This patient is new to me today: No - Critical Care Critical Care patient: No - Discharge Referral Referred to [facility] Med P.C.: No
[2019-04-04 08:33] LABS: ALBUMIN 2.7 g/dl (3.4-5.0); BILIRUBIN,TOTAL 0.5 mg/dL (0.2-1); CALCIUM 8.3 mg/dL (8.5-10.1); CREATININE 0.8 mg/dL (0.55-1.3); MAGNESIUM 2.1 mg/dL (1.8-2.4); POTASSIUM 3.4 mmol/L (3.5-5.1); TOT PROT 5.4 g/dl (6.4-8.2)
--- NOTE | 2019-04-04 09:37 | PN ---
Progress Note, Physician History of Present Illness: stable c/o of back pain - Current Medication List Current Medications: Active Medications Acetaminophen (Tylenol -) 650 mg PO Q6H PRN PRN Reason: PAIN LEVEL 1-5 Last Admin: 04/04/19 01:51 Dose: 650 mg Atorvastatin Calcium (Lipitor -) 10 mg PO HS [facility] Last Admin: 04/03/19 21:39 Dose: 10 mg Clonazepam (Klonopin -) 1 mg PO HS [facility] Last Admin: 04/03/19 21:39 Dose: 1 mg Enoxaparin Sodium (Lovenox -) 40 mg SQ DAILY [facility] Last Admin: 04/03/19 13:22 Dose: 40 mg Lamotrigine (Lamictal -) 100 mg PO BID [facility] Last Admin: 04/03/19 21:39 Dose: 100 mg Pramipexole Dihydrochloride (Mirapex -) 0.25 mg PO HS [facility] Last Admin: 04/03/19 21:39 Dose: 0.25 mg Pseudoephedrine HCl (Sudafed -) 30 mg PO Q6H PRN PRN Reason: NASAL CONGESTION Last Admin: 04/03/19 17:55 Dose: 30 mg Sodium Chloride ([place]al [place] -) 2 spray NS TID PRN PRN Reason: NASAL CONGESTION Last Admin: 04/03/19 17:56 Dose: 2 spray - Objective Vital Signs: Vital Signs Temperature 98.8 F 04/04/19 06:00 Pulse Rate 77 04/04/19 06:00 Respiratory Rate 22 H 04/04/19 06:00 Blood Pressure 98/54 L 04/04/19 06:00 O2 Sat by Pulse Oximetry (%) 94 L 04/03/19 21:00 Constitutional: Yes: No Distress, Calm Cardiovascular: Yes: Regular Rate and Rhythm Respiratory: Yes: Regular, CTA Bilaterally Gastrointestinal: Yes: Normal Bowel Sounds, Soft Musculoskeletal: Yes: WNL Extremities: Yes: Other Neurological: Yes: Alert, Oriented Psychiatric: Yes: Alert, Oriented Labs: CBC, BMP 04/04/19 05:56 04/04/19 05:56 INR, PTT INR 1.11 (0.83-1.09) H 04/02/19 06:00 Assessment/Plan r/o Osteomyelitis Sepsis Hyponatremia HTN Hyperlipidemia Anxiety will check vanco level will dose vanco after the level await for all results increase in c reactive protein
[2019-04-04] MEDS ORDERED: clonazePAM 0.5 MG TABLET PO PRN (09:54)
[2019-04-04] MEDS ORDERED: ACETAMINOPHEN 325 MG TABLET (FP) PO PRN (10:13)
[2019-04-04] MEDS ORDERED: DEXTROSE 5%-WATER 100 ML IVPB ONE (10:51)
[2019-04-04] MEDS: ENOXAPARIN NA (PORCINE) 40 MG/0.4 ML DISP.SYRIN SQ SCH (10:55)
[2019-04-04] MEDS: CEFTRIAXONE 2 GM in DEXTROSE 5%-WATER 100 ML IVPB SCH (10:55)
[2019-04-04] MEDS: lamoTRIgine 100 MG TABLET (FP) PO SCH ×2 (10:57→21:54)
[2019-04-04] MEDS: oxyCODONE HCL 5 MG TABLET PO PRN ×2 (11:14→21:54)
[2019-04-04] MEDS ORDERED: VANCOMYCIN 1 GM in D5W (PRE-DOCKED) 1,000 MG/250 ML IVPB ONE (21:00)
[2019-04-04] MEDS: PRAMIPEXOLE DIHYDROCHLORIDE 0.25 MG TABLET PO SCH (21:53)
[2019-04-04] MEDS: ATORVASTATIN CA 10 MG TABLET (FP) PO SCH (21:54)
[2019-04-05 08:23] LABS: BASO % 0.5 % (0-2.0); EOS % 4.6 % (0-4.5); HEMATOCRIT 29.8 % (32.4-45.2); HEMOGLOBIN 10.1 GM/dL (10.7-15.3); MCH 30.6 pg (25.7-33.7); MCHC 33.8 g/dl (32.0-36.0); MEAN CELL VOLUME 90.5 fl (80-96); MEAN PLT VOLUME 8.6 fl (7.5-11.1); MONO % 11.7 % (3.8-10.2); NEUT % 65.2 % (42.8-82.8); RBC 3.29 M/mm3 (3.60-5.2); RDW 13.5 % (11.6-15.6); WHITE BLOOD COUNT 4.5 K/mm3 (4.0-10.0)
[2019-04-05 08:49] LABS: ALBUMIN 2.6 g/dl (3.4-5.0); BILIRUBIN,TOTAL 0.4 mg/dL (0.2-1); BLOOD UREA NITROGEN 9.2 mg/dL (7-18); CALCIUM 8.5 mg/dL (8.5-10.1); CREATININE 0.7 mg/dL (0.55-1.3); MAGNESIUM 2.2 mg/dL (1.8-2.4); POTASSIUM 3.5 mmol/L (3.5-5.1); TOT PROT 5.6 g/dl (6.4-8.2)
[2019-04-05] MEDS ORDERED: PT OWN MED DRAWER 7, Y5N ONE (09:25)
[2019-04-05] MEDS ORDERED: DEXTROSE 5%-WATER 100 ML IVPB ONE (09:25)
[2019-04-05] MEDS: ENOXAPARIN NA (PORCINE) 40 MG/0.4 ML DISP.SYRIN SQ SCH (09:31)
[2019-04-05] MEDS: PSEUDOEPHEDRINE HCL 30 MG TABLET PO PRN (09:32)
[2019-04-05] MEDS: lamoTRIgine 100 MG TABLET (FP) PO SCH (09:33)
[2019-04-05] MEDS: SODIUM CHLORIDE NASAL SPRAY 44 ML BOTTLE NS PRN (09:36)
[2019-04-05] MEDS ORDERED: VANCOMYCIN HCL 1,500 MG in DEXTROSE 5%-WATER - 500 ML IVPB ONE (10:00)
[2019-04-05] MEDS: CEFTRIAXONE 2 GM in DEXTROSE 5%-WATER 100 ML IVPB SCH (10:44)
--- NOTE | 2019-04-05 12:38 | DS ---
Physical Examination Vital Signs: Vital Signs Temperature 98.6 F 04/05/19 09:49 Pulse Rate 79 04/05/19 09:49 Respiratory Rate 20 04/05/19 09:49 Blood Pressure 101/65 04/05/19 09:49 O2 Sat by Pulse Oximetry (%) 95 04/04/19 21:00 Constitutional: Yes: Well Nourished, No Distress, Calm Eyes: Yes: WNL, Conjunctiva Clear, EOM Intact HENT: Yes: WNL, Atraumatic, Normocephalic Neck: Yes: WNL, Supple, Trachea Midline Cardiovascular: Yes: WNL, Regular Rate and Rhythm Respiratory: Yes: WNL, Regular, CTA Bilaterally Gastrointestinal: Yes: WNL, Normal Bowel Sounds, Soft ...Rectal Exam: Yes: Deferred Renal/: Yes: WNL Musculoskeletal: Yes: Back Pain Extremities: Yes: WNL, Other (right PICC in place) Edema: No Peripheral Pulses WNL: Yes Integumentary: Yes: WNL Neurological: Yes: WNL, Alert, Oriented ...Motor Strength: WNL Psychiatric: Yes: WNL, Alert, Oriented Labs: CBC, BMP 04/05/19 07:30 04/05/19 07:30 Discharge Summary Reason For Visit: COUGH, HYPONTREMIA Current Active Problems Anxiety (Acute) Back pain (Acute) Cough (Acute) HTN (hypertension) (Acute) Hyponatremia (Acute) Osteomyelitis (Acute) Other Procedures: PICC inserted in intervention radiology to right arm on 2018 Hospital Course: Progress Note, Physician Chief Complaint: lower back paiin, fever and chills x 2 days History of Present Illness: 78 year-old female with a PMH significant for HTN, HLD, OA, and chronic back pain. Arrived in [place] on 03/27 from [place] to visit daughter. Presented to ED with complaint of home-recorded fever of 102.9, myalgias, and chills since last night. Patient reports having lumbar spine steroid injections for the first time on 03/20 and 03/26 with a pain management doctor in [place]. Patient has had a mild non-productive cough, visiting with young family members with assorted upper respiratory symptoms. No nausea, vomiting, diarrhea. No dysuria, frequency , urgency. - Current Medication List Current Medications: Active Medications Acetaminophen (Tylenol -) 650 mg PO Q6H PRN PRN Reason: PAIN LEVEL 1-5 Last Admin: 04/04/19 01:51 Dose: 650 mg Atorvastatin Calcium (Lipitor -) 10 mg PO [facility] Last Admin: 04/03/19 21:39 Dose: 10 mg Clonazepam (Klonopin -) 1 mg PO HS [facility] Last Admin: 04/03/19 21:39 Dose: 1 mg Enoxaparin Sodium (Lovenox -) 40 mg SQ DAILY [facility] Last Admin: 04/03/19 13:22 Dose: 40 mg Lamotrigine (Lamictal -) 100 mg PO BID [facility] Last Admin: 04/03/19 21:39 Dose: 100 mg Pramipexole Dihydrochloride (Mirapex -) 0.25 mg PO [facility] Last Admin: 04/03/19 21:39 Dose: 0.25 mg Pseudoephedrine HCl (Sudafed -) 30 mg PO Q6H PRN PRN Reason: NASAL CONGESTION Last Admin: 04/03/19 17:55 Dose: 30 mg Sodium Chloride ([place] Nasal [place] -) 2 spray NS TID PRN PRN Reason: NASAL CONGESTION Last Admin: 04/03/19 17:56 Dose: 2 spray - Objective Vital Signs: Vital Signs Temperature 98.8 F 04/04/19 06:00 Pulse Rate 77 04/04/19 06:00 Respiratory Rate 22 H 04/04/19 06:00 Blood Pressure 98/54 L 04/04/19 06:00 O2 Sat by Pulse Oximetry (%) 94 L 04/03/19 21:00 Constitutional: Yes: Well Nourished, No Distress, Anxious (crying during encounter) Eyes: Yes: WNL, Conjunctiva Clear, EOM Intact HENT: Yes: WNL, Atraumatic, Normocephalic Neck: Yes: WNL, Supple, Trachea Midline Cardiovascular: Yes: WNL, Regular Rate and Rhythm Respiratory: Yes: WNL, Regular, CTA Bilaterally Gastrointestinal: Yes: WNL, Normal Bowel Sounds, Soft ...Rectal Exam: Yes: Deferred Genitourinary: Yes: WNL Extremities: Yes: WNL Edema: No Peripheral Pulses WNL: Yes Neurological: Yes: WNL, Alert, Oriented ...Motor Strength: WNL Psychiatric: Yes: WNL, Alert, Oriented Labs: INR, PTT INR 1.11 (0.83-1.09) H 04/02/19 06:00 - ....Imaging Chest X-ray: Report Reviewed, Image Reviewed EKG: Report Reviewed, Image Reviewed Problem List - Problems (1) Anxiety Assessment/Plan: Continue home dose on Klonipin emotional support provided Code(s): F41.9 - ANXIETY DISORDER, UNSPECIFIED (2) Back pain Assessment/Plan: treating for synovitis back with chronic LBP recently treated with steroid injection may apply ice for 20 min intervals to lower back Code(s): M54.9 - DORSALGIA, UNSPECIFIED (3) HTN (hypertension) Assessment/Plan: resume home dose of benzepril Code(s): I10 - ESSENTIAL (PRIMARY) HYPERTENSION (4) Hyponatremia Assessment/Plan: resolved Code(s): E87.1 - HYPO-OSMOLALITY AND HYPONATREMIA (5) Osteomyelitis Assessment/Plan: on MRI patient found to have active inflammatory facet synovitis L3-L4-L5 w/ soft tissue inflammation; L5-S1 soft tissue inflammation and bone marrow enhancement Continue Vanco and ceftriaxone-corse of 5 days in hospital and will continue for 6 weeks after discharge -procalcitonin sent and pending -ESR 63, ESR 14.4 Code(s): M86.9 - OSTEOMYELITIS, UNSPECIFIED Impression/Plan Impression/Plan: Patient to be discharged home/daughters home with infusion therapy in place. Resume full activty as tolerated. Resume home diet. Keep PICC arm dry and clean. Care to be done initially by [facility]. Thank you for allowing me to be involved in Mrs. Billingsley's care - Instructions Diet, Activity, Other Instructions: resume regular diet Disposition: [facility]/HOME HEALTH CARE - Home Medications Comprehensive Discharge Medication List: Ambulatory Orders Benazepril/Hydrochlorothiazide [Benazepril-Hctz 10-12.5 mg Tab] 1 each PO BID Clonazepam 1 mg PO HS 04/01/19 Lamotrigine 100 mg PO BID 04/01/19 Meloxicam [Mobic (Nf) -] 15 mg PO DAILY 04/01/19 Pramipexole Dihydrochloride 0.25 mg PO HS 04/01/19 Simvastatin 20 mg PO HS 04/01/19 traZODone HCL [Trazodone HCl] 50 mg PO HS 04/01/19 Pseudoephedrine HCl [Sudafed -] 30 mg PO Q6H PRN tablet 04/04/19 Sodium Chloride Nasal [place] [[place] -] 2 spray NS TID PRN spray 04/04/19 Acetaminophen [Tylenol .Regular Strength -] 325 mg PO Q6H PRN tablet 04/05/19 This patient is new to me today: No Emergency Visit: Yes ED Registration Date: 04/02/19 Care time: The patient presented to the Emergency Department on the above date and was hospitalized for further evaluation of their emergent condition. Critical Care patient: No - Discharge Referral Referred to [facility] Med P.C.: No
--- NOTE | 2019-04-05 13:57 | PN ---
Progress Note, Physician History of Present Illness: Pt seen and examined. Events reviewed. Pt states she has less back pain. Tolerating antibiotics. Has no new complaints. Wishes to go home. - Current Medication List Current Medications: Active Medications Acetaminophen (Tylenol -) 650 mg PO Q6H PRN PRN Reason: PAIN LEVEL 1-5 Last Admin: 04/04/19 01:51 Dose: 650 mg Acetaminophen (Tylenol -) 325 mg PO Q6H PRN PRN Reason: PAIN 6-10 Atorvastatin Calcium (Lipitor -) 10 mg PO [facility] Last Admin: 04/04/19 21:54 Dose: 10 mg Clonazepam (Klonopin -) 1 mg PO BID PRN PRN Reason: ANXIETY Last Admin: 04/04/19 23:59 Dose: 1 mg Enoxaparin Sodium (Lovenox -) 40 mg SQ DAILY [facility] Last Admin: 04/05/19 09:31 Dose: 40 mg Ceftriaxone Sodium 2 gm/ (Dextrose) 100 mls @ 100 mls/hr IVPB DAILY [facility]; Protocol Last Admin: 04/05/19 10:44 Dose: 100 mls/hr Lamotrigine (Lamictal -) 100 mg PO BID [facility] Last Admin: 04/05/19 09:33 Dose: 100 mg Pramipexole Dihydrochloride (Mirapex -) 0.25 mg PO [facility] Last Admin: 04/04/19 21:53 Dose: 0.25 mg Pseudoephedrine HCl (Sudafed -) 30 mg PO Q6H PRN PRN Reason: NASAL CONGESTION Last Admin: 04/05/19 09:32 Dose: 30 mg Sodium Chloride ([place] Nasal [place] -) 2 spray NS TID PRN PRN Reason: NASAL CONGESTION Last Admin: 04/05/19 09:36 Dose: 2 spray - Objective Vital Signs: Vital Signs Temperature 98.6 F 04/05/19 09:49 Pulse Rate 79 04/05/19 09:49 Respiratory Rate 20 04/05/19 09:49 Blood Pressure 101/65 04/05/19 09:49 O2 Sat by Pulse Oximetry (%) 95 04/04/19 21:00 Constitutional: Yes: No Distress, Calm, Other (ambulating) HENT: Yes: Atraumatic Cardiovascular: Yes: Regular Rate and Rhythm Respiratory: Yes: Regular Gastrointestinal: Yes: Normal Bowel Sounds, Soft Genitourinary: Yes: WNL Musculoskeletal: Yes: WNL (less), Back Pain Extremities: Yes: WNL Integumentary: Yes: WNL Neurological: Yes: Alert, Oriented Labs: CBC, BMP 04/05/19 07:30 04/05/19 07:30 INR, PTT INR 1.11 (0.83-1.09) H 04/02/19 06:00 Laboratory Results - last 24 hr 04/04/19 04/05/19 04/05/19 16:40 07:30 07:30 WBC 4.5 RBC 3.29 L Hgb 10.1 L Hct 29.8 L MCV 90.5 MCH 30.6 MCHC 33.8 RDW 13.5 MPV 8.6 Absolute Neuts (auto) 2.9 Neutrophils % 65.2 Lymphocytes % 18.0 Monocytes % 11.7 H Eosinophils % 4.6 H D Basophils % 0.5 Nucleated RBC % 0 Sodium 138 Potassium 3.5 Chloride 102 Carbon Dioxide 29 Anion Gap 7 L BUN 9.2 Creatinine 0.7 Est GFR (CKD-EPI)AfAm 96.86 Est GFR (CKD-EPI)NonAf 83.57 Random Glucose 106 Calcium 8.5 Magnesium 2.2 Total Bilirubin 0.4 AST 33 ALT 27 Alkaline Phosphatase 88 Total Protein 5.6 L Albumin 2.6 L Vancomycin Pre-Dose 4.9 L Problem List - Problems (1) Anxiety Code(s): F41.9 - ANXIETY DISORDER, UNSPECIFIED (2) Back pain Code(s): M54.9 - DORSALGIA, UNSPECIFIED (3) HTN (hypertension) Code(s): I10 - ESSENTIAL (PRIMARY) HYPERTENSION (4) Osteomyelitis Code(s): M86.9 - OSTEOMYELITIS, UNSPECIFIED Assessment/Plan Back Pain/ Possible OM/discitis HTN Anxiety HTN HLD -- Vancomycin dose was adjusted -- Pt is for d/c home -- needs Ceftriaxone/Vancomycin IV x 6 weeks -- repeat Vancomycin trough prior to 4th dose -- weekly cbc, bmp, esr, Vancomycin Trough, monitor renal function, adjust dose based on labs if necessary -- repeat MRI in 6 weeks -- pt instructed to seek immediate attention if symptoms worsen, if develops abd pain/diarrhea/rash or any other adverse effect while on treatment f/u with PMD as outpt d/w [employer]
[2019-04-05 14:32] VITALS: BP 118/71; PULSE 80; TEMP 98.2
[2019-04-05 14:34] LABS: PLATELET COUNT 185 K/MM3 (134-434)
== END 2019-04-05 14:40 | disposition home health service (06) | DRG 540 ==
LOC: FER 08:45 → FM/S 17:25 → JICU 04-02 00:52 → OBSVTOIN 04-02 05:39 → J5S 04-02 15:00
PROVIDERS: ATTEND Nurse Practitioner Acute Care
PROC: 02HV33Z Insertion of Infusion Device into Superior Vena Cava, Percutaneous Approach (ICD-10-PCS; principal; 2019-04-04)
DX: M86.9 Osteomyelitis, unspecified (principal); E87.1 Hypo-osmolality and hyponatremia; I10 Essential (primary) hypertension; F41.9 Anxiety disorder, unspecified; M46.46 Discitis, unspecified, lumbar region; E78.5 Hyperlipidemia, unspecified
CPT/HCPCS: 36415; 36569; 71046-TC-FY; 72149-TC; 77001-TC-FY; 80048; 80053; 81003; 81015; 82308; 83605; 83735; 84100; 85025; 85027; 85610; 85651; 85730; 86140; 87040; 87086; 87633; 87804; 93005; 97116-GP; 97161-GP; 99284-25; C1751; C1887; G0378; G0480; J0131; J1100; J7030